=== PATIENT | female | born 1960 | race African-American/Black ===

== ENCOUNTER 2018-06-14 21:53 | Emergency (ER) | payer OTHER ==
[~2018-06-14] VITALS: Ht 157.5 cm; Wt 88.0 kg
[~2018-06-14 21:53] MED LIST: ATIVAN1 MG PO; BACLOFEN10 MG PO; BENICAR HCT1 TA1 PO; COL100 PO; LASIX40 MG PO; MOM PO; MYL80 CH; NAPROSYN25 MG/ML PO; POTASSIUM CHLO10 MEQ
[2018-06-14 22:02] VITALS: Ht 157.5 cm; Wt 88.0 kg
[2018-06-15 00:10] VITALS: BP 125/68
== END 2018-06-15 00:10 | disposition home or self-care (01) ==
LOC: ED 21:53
DX: S16.1XXA Strain of muscle, fascia and tendon at neck level, initial encounter (principal); I10 Essential (primary) hypertension; F41.9 Anxiety disorder, unspecified; V49.88XA Car occupant (driver) (passenger) injured in other specified transport accidents, initial encounter; Y93.I9 Activity, other involving external motion; Y92.413 State road as the place of occurrence of the external cause; Y99.8 Other external cause status
CPT/HCPCS: J1885